=== PATIENT | male | born 1950 | race Caucasian/White ===

== ENCOUNTER 2017-06-22 13:33 | Emergency (ER) | payer MEDICARE, OTHER ==
[~2017-06-22] VITALS: Ht 177.8 cm; Wt 117.0 kg
[~2017-06-22 13:33] MED LIST: HYDR-3720 PO
[2017-06-22 13:58] LABS: BASOPHILS # (AUTO) 0.1 10^3/uL (0.0-0.1); BASOPHILS % (AUTO) 1 % (0-10); EOSINOPHILS # (AUTO) 0.1 10^3/uL (0.0-0.3); EOSINOPHILS % (AUTO) 1 % (0-10); HEMATOCRIT 44 % (40-54); HEMOGLOBIN 15.3 G/DL (13.3-17.7); LYMPHOCYTES # (AUTO) 1.9 X 10^3 (1.0-4.0); LYMPHOCYTES % (AUTO) 29 % (12-44); MEAN CORPUSCULAR HEMOGLOBIN 32 PG (25-34); MEAN CORPUSCULAR HGB CONC 35 G/DL (32-36); MEAN CORPUSCULAR VOLUME 92 FL (80-99); MEAN PLATELET VOLUME 11.6 FL (7.4-10.4); MONOCYTES # (AUTO) 0.6 X 10^3 (0.0-1.0); MONOCYTES % (AUTO) 10 % (0-12); NEUTROPHILS # (AUTO) 3.7 X 10^3 (1.8-7.8); NEUTROPHILS % (AUTO) 58 % (42-75); PLATELET COUNT 162 10^3/uL (130-400); RED BLOOD COUNT 4.81 10^6/uL (4.35-5.85); RED CELL DISTRIBUTION WIDTH 13.9 % (10.0-14.5); WHITE BLOOD COUNT 6.3 10^3/uL (4.3-11.0)
--- NOTE | 2017-06-22 13:58 | ED Chest Pain ---
General Chief Complaint: Chest Pain Stated Complaint: CHEST PAIN Nursing Triage Note: KEENAN WAS WORKING IN THE YARD WHEN HE STARTED TO HAVE CHEST PAIN AROUND 12: 15. HE CALLED EMS. THE DID EKG, PAIN RESOLVED WITHOUT MEDS. EMS FELT HE WAS STABLE ENOUGH TO COME ON INTO THE HOSPITAL FOR LABS. HE IS CURRENTLY NOT HAVING ANY CHEST PAIN. Nursing Sepsis Screen: No Definite Risk Source: patient, family Exam Limitations: no limitations History of Present Illness Date Seen by Provider: Jun 22, 2017 Time Seen by Provider: 13:54 Initial Comments The patient is a 67-year-old white male. He reports that he was working in his yard and developed central chest pain. There was no radiation to neck and jaw arms or back. This occurred at about 1215. He then called the ambulance and they responded. The pain was associated with a cold sweat which was not drenching. He has a previous history of coronary artery disease and had 3 stents placed at [facility] around the first of the year. Timing/Duration: 1-3 hours Severity/Quality: moderate Location: central Radiation: no radiation Activities at Onset: activity (yard work) Modifying Factors: improves with rest Associated Symptoms: diaphoresis Allergies and Home Medications Allergies Coded Allergies: No Known Allergies (Unverified Allergy, Mild, 11/25/05) No Known Drug Allergies (Unverified Allergy, Mild, 10/04/08) Home Medications Hydrocodone Bit/Acetaminophen 1 Ea Tab, 1 EA PO Q 4 - 6 HRS PRN Prescribed by: SUSAN DUTTON on 10/05/08 0203 Patient Home Medication List Home Medication List Reviewed: Yes Review of Systems Constitutional: see HPI EENTM: No Symptoms Reported Respiratory: No Symptoms Reported Cardiovascular: See HPI, Chest Pain Gastrointestinal: No Symptoms Reported Genitourinary: No Symptoms Reported Musculoskeletal: no symptoms reported Skin: no symptoms reported Psychiatric/Neurological: No Symptoms Reported Endocrine: No Symptoms Reported Hematologic/Lymphatic: No Symptoms Reported Past Vwxrzbb-Kixayc-Mpgqkc Hx Patient Social History Recent Foreign Travel: No Contact w/Someone Who Travel: No Recent Infectious Disease Expo: No Physical Exam Vital Signs Vital Signs - First Documented 06/22/17 13:43 Temp 97.8 Pulse 60 Resp 16 B/P (MAP) 122/91 (101) Pulse Ox 99 O2 Delivery Room Air Capillary Refill : Less Than 3 Seconds General Appearance: Mild Distress HEENT: Normal ENT Inspection Neck: Normal Inspection Respiratory: Chest Non Tender, Lungs Clear, Normal Breath Sounds, No Accessory Muscle Use, No Respiratory Distress Cardiovascular: Regular Rate, Rhythm, No Edema, No Gallop, No JVD, No Murmur, Normal Peripheral Pulses Gastrointestinal: Normal Bowel Sounds, No Organomegaly, No Pulsatile Mass, Non Tender Extremity: Normal Capillary Refill, Normal Inspection, Normal Range of Motion, Non Tender, No Calf Tenderness, No Pedal Edema Skin: Normal Color, Warm/Dry Lymphatic: No Adenopathy Other comments Symmetrical 1+ pretibial edema consistent with venous stasis bilaterally Progress/Results/Core Measures Results/Orders Lab Results Laboratory Tests Test 06/22/17 13:48 Range/Units White Blood Count 6.3 4.3-11.0 10^3/uL Red Blood Count 4.81 4.35-5.85 10^6/uL Hemoglobin 15.3 13.3-17.7 G/DL Hematocrit 44 40-54 % Mean Corpuscular Volume 92 80-99 FL Mean Corpuscular Hemoglobin 32 25-34 PG Mean Corpuscular Hemoglobin Concent 35 32-36 G/DL Red Cell Distribution Width 13.9 10.0-14.5 % Platelet Count 162 130-400 10^3/uL Mean Platelet Volume 11.6 H 7.4-10.4 FL Neutrophils (%) (Auto) 58 42-75 % Lymphocytes (%) (Auto) 29 12-44 % Monocytes (%) (Auto) 10 0-12 % Eosinophils (%) (Auto) 1 0-10 % Basophils (%) (Auto) 1 0-10 % Neutrophils # (Auto) 3.7 1.8-7.8 X 10^3 Lymphocytes # (Auto) 1.9 1.0-4.0 X 10^3 Monocytes # (Auto) 0.6 0.0-1.0 X 10^3 Eosinophils # (Auto) 0.1 0.0-0.3 10^3/uL Basophils # (Auto) 0.1 0.0-0.1 10^3/uL Sodium Level 137 135-145 MMOL/L Potassium Level 4.5 3.6-5.0 MMOL/L Chloride Level 104 98-107 MMOL/L Carbon Dioxide Level 23 21-32 MMOL/L Anion Gap 10 5-14 MMOL/L Blood Urea Nitrogen 13 7-18 MG/DL Creatinine 0.99 0.60-1.30 MG/DL Estimat Glomerular Filtration Rate > 60 BUN/Creatinine Ratio 13 Glucose Level 108 H 70-105 MG/DL Calcium Level 9.2 8.5-10.1 MG/DL Total Bilirubin 1.3 H 0.1-1.0 MG/DL Aspartate Amino Transf (AST/SGOT) 69 H 5-34 U/L Alanine Aminotransferase (ALT/SGPT) 48 0-55 U/L Alkaline Phosphatase 146 H 40-136 U/L Troponin I < 0.30 <0.30 NG/ML Total Protein 7.8 6.4-8.2 GM/DL Albumin 3.9 3.2-4.5 GM/DL My Orders Orders - FRANCI GUADARRAMA MD Ekg Tracing (06/22/17 13:34) Cbc With Automated Diff (06/22/17 13:34) Comprehensive Metabolic Panel (06/22/17 13:34) Troponin I (06/22/17 13:34) Chest 1 View, Ap/Pa Only (06/22/17 13:34) Vital Signs/I&O Vital Sign - Last 12Hours 06/22/17 13:43 Temp 97.8 Pulse 60 Resp 16 B/P (MAP) 122/91 (101) Pulse Ox 99 O2 Delivery Room Air Blood Pressure Mean: 101 Departure Impression Impression: Primary Impression: Chest pain Disposition: 01 HOME, SELF-CARE Condition: Improved Departure-Patient Inst. Decision time for Depature: 15:03 Referrals: NO,LOCAL PHYSICIAN (PCP) Primary Care Physician Patient Instructions: Angina (DC) Add. Discharge Instructions: All discharge instructions reviewed with patient and/or family. Voiced understanding. The cardiogram and laboratory are negative. The troponin was less than 0.30. In discussing this with the patient and his family, it was revealed that he has been without Plavix for 3 days. His stenting was done in March and he was told that he was to take Plavix for a year. I am inferring that this means drug eluting stents. They have been informed that there refill is in at the pharmacy. Resume your Plavix today. If recurrent pain return to the emergency room. FRANCI GUADARRAMA MD Jun 22, 2017 13:58
--- OUTSIDE RECORDS SUMMARY | 2017-06-22 14:03 | XMS REPORT | Continuity of Care Document ---
Author Author [facility] Organization [facility] Address Unknown Phone Unavailable Allergies Active Description Code Type Severity Reaction Onset Reported/Identified Relationship to Patient Clinical Status Yes NKANo Known Allergies NKA Miscellaneous Allergy Mild N/A 11/25/2005 Yes No Known Drug Allergies [id number] Drug Allergy Mild N/A 10/04/2008 Medications There is no data. Problems There is no data. Procedures There is no data. Results Test Result Range Complete blood count (CBC) with automated white blood cell (WBC) differential - 06/22/17 13:48 Blood leukocytes automated count (number/volume) 6.3 10*3/uL 4.3-11.0 Blood erythrocytes automated count (number/volume) 4.81 10*6/uL 4.35-5.85 Venous blood hemoglobin measurement (mass/volume) 15.3 g/dL 13.3-17.7 Blood hematocrit (volume fraction) 44 % 40-54 Automated erythrocyte mean corpuscular volume 92 [foz_us] 80-99 Automated erythrocyte mean corpuscular hemoglobin (mass per erythrocyte) 32 pg 25-34 Automated erythrocyte mean corpuscular hemoglobin concentration measurement ( mass/volume) 35 g/dL 32-36 Automated erythrocyte distribution width ratio 13.9 % 10.0-14.5 Automated blood platelet count (count/volume) 162 10*3/uL 130-400 Automated blood platelet mean volume measurement 11.6 [foz_us] 7.4-10.4 Automated blood neutrophils/100 leukocytes 58 % 42-75 Automated blood lymphocytes/100 leukocytes 29 % 12-44 Blood monocytes/100 leukocytes 10 % 0-12 Automated blood eosinophils/100 leukocytes 1 % 0-10 Automated blood basophils/100 leukocytes 1 % 0-10 Blood neutrophils automated count (number/volume) 3.7 10*3 1.8-7.8 Blood lymphocytes automated count (number/volume) 1.9 10*3 1.0-4.0 Blood monocytes automated count (number/volume) 0.6 10*3 0.0-1.0 Automated eosinophil count 0.1 10*3/uL 0.0-0.3 Automated blood basophil count (count/volume) 0.1 10*3/uL 0.0-0.1 Encounters ACCT No. Visit Date/Time Discharge Status Pt. Type Provider Facility Loc./Unit Complaint [id number] 07/16/2013 13:00:00 07/29/2013 12:08:00 [facility] Outpatient [id number] 06/22/2017 13:35:00 ACT Emergency THIERRY CALDERA, FRANCI [facility] ER CHEST PAIN
[2017-06-22 14:16] LABS: ALANINE AMINOTRANSFERASE 48 U/L (0-55); ALBUMIN 3.9 GM/DL (3.2-4.5); ALKALINE PHOSPHATASE 146 U/L (40-136); BILIRUBIN,TOTAL 1.3 MG/DL (0.1-1.0); BUN/CREATININE RATIO 13; CALCIUM 9.2 MG/DL (8.5-10.1); CARBON DIOXIDE 23 MMOL/L (21-32); CHLORIDE 104 MMOL/L (98-107); CREATININE SERUM 0.99 MG/DL (0.60-1.30); GFR ESTIMATED > 60; GLUCOSE 108 MG/DL (70-105); POTASSIUM 4.5 MMOL/L (3.6-5.0); SODIUM 137 MMOL/L (135-145); TOTAL PROTEIN 7.8 GM/DL (6.4-8.2)
--- NOTE | 2017-06-22 14:32 | Diagnostic Imaging Report ---
CLINICAL INDICATION: Patient with chest pain started today. EXAM: Portable chest x-ray, upright view. COMPARISONS: Chest x-ray dated 10/05/2008. FINDINGS: Lungs/pleura: Lungs are clear. There is no pneumothorax. There is no pleural effusion. Mediastinum: Unremarkable. Pulmonary vasculature: Unremarkable. Heart: Unremarkable. Bones/extrathoracic soft tissue: Unremarkable. IMPRESSION: Stable chest x-ray exam with no interval radiographic evidence of acute cardiopulmonary process. Dictated by: Dictated on workstation # [id number]
[2017-06-22 15:40] VITALS: BP 122/91
== END 2017-06-22 15:41 | disposition home or self-care (01) ==
LOC: EDUNIT# 13:33 → ER 13:35
DX: R07.89 Other chest pain (principal); I25.10 Atherosclerotic heart disease of native coronary artery without angina pectoris; Z95.5 Presence of coronary angioplasty implant and graft
CPT/HCPCS: 36415; 71045; 80053; 84484; 85025; 93005

== ENCOUNTER 2017-10-19 10:45 | Emergency (ER) | payer MEDICARE, OTHER ==
[~2017-10-19] VITALS: Ht 177.8 cm; Wt 113.4 kg
[2017-10-19] MEDS ORDERED: fentaNYL INJECTION 100 MCG/2 ML AMP IVP ONE (11:15)
[2017-10-19 11:16] LABS: BASOPHILS # (AUTO) 0.1 10^3/uL (0.0-0.1); BASOPHILS % (AUTO) 1 % (0-10); EOSINOPHILS # (AUTO) 0.1 10^3/uL (0.0-0.3); EOSINOPHILS % (AUTO) 2 % (0-10); HEMATOCRIT 44 % (40-54); HEMOGLOBIN 15.1 G/DL (13.3-17.7); LYMPHOCYTES # (AUTO) 1.6 X 10^3 (1.0-4.0); LYMPHOCYTES % (AUTO) 24 % (12-44); MEAN CORPUSCULAR HEMOGLOBIN 32 PG (25-34); MEAN CORPUSCULAR HGB CONC 35 G/DL (32-36); MEAN CORPUSCULAR VOLUME 93 FL (80-99); MEAN PLATELET VOLUME 10.9 FL (7.4-10.4); MONOCYTES # (AUTO) 0.9 X 10^3 (0.0-1.0); MONOCYTES % (AUTO) 13 % (0-12); NEUTROPHILS # (AUTO) 3.9 X 10^3 (1.8-7.8); NEUTROPHILS % (AUTO) 60 % (42-75); PLATELET COUNT 157 10^3/uL (130-400); RED CELL DISTRIBUTION WIDTH 14.5 % (10.0-14.5); WHITE BLOOD COUNT 6.5 10^3/uL (4.3-11.0)
[2017-10-19] MEDS ORDERED: ATOR40TA70 (11:17)
[2017-10-19] MEDS ORDERED: METO-333 (11:17)
[2017-10-19] MEDS ORDERED: CLOP75TA28 (11:17)
[2017-10-19] MEDS ORDERED: ASPI-586 PO (11:17)
--- NOTE | 2017-10-19 11:17 | ED Lower Extremity ---
General Chief Complaint: Trauma-Non Activation Stated Complaint: RT LEG INJ, FELL THROUGH SWIMMING POOL DECK Source: patient, family Exam Limitations: no limitations History of Present Illness Date Seen by Provider: Oct 19, 2017 Time Seen by Provider: 11:12 Initial Comments 67-year-old male presents after he fell through his deck sustaining injuries to his right ribs and knee. He is complaining of pain in his right posterior rib cage and pain and swelling to his right knee. All the patient hit his head he is complaining of no loss of consciousness, confusion, neck pain, paresthesias or weakness in the extremities. He denies other significant injury in his accident. Patient's pain is sharp in nature moderately severe, and made worse by either a deep breath in his chest wall or movement of his right knee. There may have been a valgus stress to his right knee as he fell. Allergies and Home Medications Allergies Coded Allergies: No Known Allergies (Unverified Allergy, Mild, 11/25/05) No Known Drug Allergies (Unverified Allergy, Mild, 10/04/08) Home Medications Hydrocodone Bit/Acetaminophen 1 Ea Tab, 1 EA PO Q 4 - 6 HRS PRN Prescribed by: SUSAN DUTTON on 10/05/08 0203 Patient Home Medication List Home Medication List Reviewed: Yes Constitutional: No chills EENTM: No hearing loss Respiratory: see HPI, other (pain with deep breath in his right posterior ribs) Cardiovascular: No chest pain Gastrointestinal: No abdominal pain, No nausea, No vomiting Genitourinary: No dysuria, No hematuria Musculoskeletal: see HPI, back pain Skin: No change in color, No rash Psychiatric/Neurological: No Symptoms Reported Past Qtaghvq-Tfheju-Mnbtpj Hx Past Med/Social Hx: Reviewed Nursing Past Med/Soc Hx Patient Social History 2nd Hand Smoke Exposure: No Recent Foreign Travel: No Contact w/Someone Who Travel: No Recent Hopitalizations: No Seasonal Allergies Seasonal Allergies: No Past Medical History Surgeries: No Integumentary: No Physical Exam Vital Signs Vital Signs - First Documented 10/19/17 10:45 Temp 98.0 Pulse 56 Resp 18 B/P (MAP) 146/90 (108) Pulse Ox 97 O2 Delivery Room Air Capillary Refill : Height, Weight, BMI Height: 5'10.00" Weight: 258lbs. 0oz. [id number]; BMI Method:Stated General Appearance: WD/WN, mild distress HEENT: normal ENT inspection, other (there was no evidence of head injury on exam appreciated.) Neck: non-tender, full range of motion, supple Cardiovascular: normal peripheral pulses, regular rate, rhythm Respiratory: lungs clear, other (there is tenderness palpation of the right posterior ribs.) Gastrointestinal: normal bowel sounds, soft Back: normal inspection Hips: bilateral hip non-tender, bilateral hip normal inspection Legs: bilateral leg non-tender, bilateral leg normal inspection Knees: right knee ecchymosis, right knee joint effusion, right knee swelling, right knee other (there appears to be a moderate effusion present in the right knee.) Ankles: bilateral ankle non-tender, bilateral ankle normal inspection Feet: bilateral foot non-tender, bilateral foot normal inspection Neurologic/Tendon: normal sensation, normal motor functions, normal tendon functions Neurologic/Psychiatric: no motor/sensory deficits, alert, normal mood/affect, oriented x 3 Skin: normal color, warm/dry Progress/Results/Core Measures Results/Orders Lab Results Laboratory Tests Test 10/19/17 11:02 10/19/17 12:01 Range/Units White Blood Count 6.5 4.3-11.0 10^3/uL Red Blood Count 4.70 4.35-5.85 10^6/uL Hemoglobin 15.1 13.3-17.7 G/DL Hematocrit 44 40-54 % Mean Corpuscular Volume 93 80-99 FL Mean Corpuscular Hemoglobin 32 25-34 PG Mean Corpuscular Hemoglobin Concent 35 32-36 G/DL Red Cell Distribution Width 14.5 10.0-14.5 % Platelet Count 157 130-400 10^3/uL Mean Platelet Volume 10.9 H 7.4-10.4 FL Neutrophils (%) (Auto) 60 42-75 % Lymphocytes (%) (Auto) 24 12-44 % Monocytes (%) (Auto) 13 H 0-12 % Eosinophils (%) (Auto) 2 0-10 % Basophils (%) (Auto) 1 0-10 % Neutrophils # (Auto) 3.9 1.8-7.8 X 10^3 Lymphocytes # (Auto) 1.6 1.0-4.0 X 10^3 Monocytes # (Auto) 0.9 0.0-1.0 X 10^3 Eosinophils # (Auto) 0.1 0.0-0.3 10^3/uL Basophils # (Auto) 0.1 0.0-0.1 10^3/uL Prothrombin Time 14.2 12.2-14.7 SEC INR Comment 1.1 0.8-1.4 Sodium Level 137 135-145 MMOL/L Potassium Level 4.0 3.6-5.0 MMOL/L Chloride Level 106 98-107 MMOL/L Carbon Dioxide Level 22 21-32 MMOL/L Anion Gap 9 5-14 MMOL/L Blood Urea Nitrogen 11 7-18 MG/DL Creatinine 1.01 0.60-1.30 MG/DL Estimat Glomerular Filtration Rate > 60 BUN/Creatinine Ratio 11 Glucose Level 118 H 70-105 MG/DL Calcium Level 8.9 8.5-10.1 MG/DL Total Bilirubin 1.4 H 0.1-1.0 MG/DL Aspartate Amino Transf (AST/SGOT) 62 H 5-34 U/L Alanine Aminotransferase (ALT/SGPT) 49 0-55 U/L Alkaline Phosphatase 128 40-136 U/L Total Protein 7.3 6.4-8.2 GM/DL Albumin 3.7 3.2-4.5 GM/DL Urine Color YELLOW Urine Clarity CLEAR Urine pH 5 5-9 Urine Specific Pinnacle 1.015 L 1.016-1.022 Urine Protein NEGATIVE NEGATIVE Urine Glucose (UA) NEGATIVE NEGATIVE Urine Ketones NEGATIVE NEGATIVE Urine Nitrite NEGATIVE NEGATIVE Urine Bilirubin NEGATIVE NEGATIVE Urine Urobilinogen NORMAL NORMAL MG/DL Urine Leukocyte Esterase NEGATIVE NEGATIVE Urine RBC (Auto) NEGATIVE NEGATIVE Urine RBC NONE /HPF Urine WBC NONE /HPF Urine Squamous Epithelial Cells RARE /HPF Urine Crystals NONE /LPF Urine Bacteria NEGATIVE /HPF Urine Casts NONE /LPF Urine Mucus NEGATIVE /LPF Urine Culture Indicated NO My Orders Orders - VEL MASON MD Cbc With Automated Diff (10/19/17 10:56) Comprehensive Metabolic Panel (10/19/17 10:56) Ua Culture If Indicated (10/19/17 10:56) Ekg Tracing (10/19/17 10:56) Knee, Right, 3 Views (10/19/17 10:56) Protime With Inr (10/19/17 10:56) Ribs/Unilateral With Chest (10/19/17 10:56) Fentanyl Injection (Sublimaze Injection (10/19/17 11:15) Elbow, Right, 3 Views (10/19/17 11:23) Medications Given in ED Current Medications Medications Dose Ordered Sig/Sandy Route Start Time Stop Time Status Last Admin Dose Admin Fentanyl Citrate 50 mcg ONCE ONCE IVP 10/19/17 11:15 10/19/17 11:16 DC 10/19/17 11:25 50 MCG Vital Signs/I&O 10/19/17 10:45 Temp 98.0 Pulse 56 Resp 18 B/P (MAP) 146/90 (108) Pulse Ox 97 O2 Delivery Room Air Progress Progress Note : Time: 12:30 Progress Note X-rays of the right ribs, right elbow, and right knee failed to demonstrate evidence of fracture or dislocation. Clinically I believe the patient may have broken ribs in the right chest wall posteriorly over his lower rib cage. Although there is no evidence of fracture of the right knee the effusion raises concern for occult ligamentous injury. Departure Impression Primary Impression: Fall Qualified Codes: W19.XXXA - Unspecified fall, initial encounter Additional Impressions: Contusion of right chest wall Qualified Codes: S20.211A - Contusion of right front wall of thorax, initial encounter Contusion of right knee Qualified Codes: S80.01XA - Contusion of right knee, initial encounter Disposition: HOME, SELF-CARE Condition: Improved Departure-Patient Inst. Decision time for Depature: 12:33 Referrals: NO,LOCAL PHYSICIAN (PCP) Primary Care Physician Patient Instructions: CHEST CONTUSION Add. Discharge Instructions: Follow-up the orthopedic surgeon, Dr. Feldman in [place] on Sunday with disc of your films. Ice and elevate the right knee. Use your cane for assisted weightbearing. Ice tonight and heat tomorrow to the right chest wall. Hydrocodone as prescribed for pain. Return if any problems or questions. All discharge instructions reviewed with patient and/or family. Voiced understanding. VEL MASON MD Oct 19, 2017 11:17
[2017-10-19] MEDS ORDERED: POTASSIUM (11:19)
[2017-10-19 11:38] LABS: INR 1.1 (0.8-1.4); PROTHROMBIN TIME PATIENT 14.2 SEC (12.2-14.7)
[2017-10-19 11:47] LABS: ALANINE AMINOTRANSFERASE 49 U/L (0-55); ALBUMIN 3.7 GM/DL (3.2-4.5); ALKALINE PHOSPHATASE 128 U/L (40-136); BILIRUBIN,TOTAL 1.4 MG/DL (0.1-1.0); BUN/CREATININE RATIO 11; CALCIUM 8.9 MG/DL (8.5-10.1); CARBON DIOXIDE 22 MMOL/L (21-32); CHLORIDE 106 MMOL/L (98-107); CREATININE SERUM 1.01 MG/DL (0.60-1.30); GFR ESTIMATED > 60; GLUCOSE 118 MG/DL (70-105); SODIUM 137 MMOL/L (135-145); TOTAL PROTEIN 7.3 GM/DL (6.4-8.2)
--- NOTE | 2017-10-19 12:09 | Diagnostic Imaging Report ---
EXAMINATION: Right elbow, 3 views. COMPARISON: None. HISTORY: 67-year-old male, fall. Right elbow pain and bruising. FINDINGS: There is degenerative type enthesopathy at the common extensor tendon attachment and common flexor tendon attachment. There is no elbow joint effusion. There is no elbow joint dislocation. There is no identified acute fracture. There is no radiopaque foreign body. There is no cortical or aggressive bone destruction. IMPRESSION: 1. No identified acute bony abnormality of the right elbow. Dictated by: Dictated on workstation # [id number]
[2017-10-19 12:10] LABS: BILIRUBIN,URINE NEGATIVE (NEGATIVE); CLARITY,URINE CLEAR; COLOR,URINE YELLOW; GLUCOSE, URINE (UA) NEGATIVE (NEGATIVE); KETONES,URINE NEGATIVE (NEGATIVE); LEUKOCYTE ESTERASE ,URINE NEGATIVE (NEGATIVE); NITRITE,URINE NEGATIVE (NEGATIVE); PH,URINE 5 (5-9); PROTEIN,URINE NEGATIVE (NEGATIVE); UROBILINOGEN,URINE NORMAL (NORMAL)
--- NOTE | 2017-10-19 12:13 | Diagnostic Imaging Report ---
EXAMINATION: Ribs with PA chest, four images. COMPARISON: June 22, 2017. HISTORY: 67-year-old male, fall through deck. Right rib pain. FINDINGS: Heart size and mediastinal contours are unchanged. There is no identified pneumothorax. There is no large pleural effusion. There are low lung volumes with associated central bronchovascular crowding. There is no identified focal airspace consolidation. There are technical limitations of the exam relating to patient body habitus and difficulties with exposure. There are anchors overlying the right humeral head. There is no identified right-sided rib fracture. IMPRESSION: 1. No identified right-sided rib fracture. 2. No identified acute cardiopulmonary abnormality. Dictated by: Dictated on workstation # [id number]
--- NOTE | 2017-10-19 12:15 | Diagnostic Imaging Report ---
EXAMINATION: Right knee, three views. COMPARISON: None. HISTORY: 67-year-old male, fell through deck. Right knee pain. FINDINGS: There is no right knee joint effusion. There are tiny patellofemoral compartment osteophytes with mild patellofemoral compartment joint space loss. There is minimal degenerative type enthesopathy at the insertion of the distal quadriceps tendon. There is very mild narrowing of the medial compartment with tiny medial compartment osteophytes. There is no identified acute fracture. There is no radiopaque foreign body. IMPRESSION: 1. No identified acute bony abnormality of the right knee. 2. Mild medial and patellofemoral compartment osteoarthritis. Dictated by: Dictated on workstation # [id number]
[2017-10-19 12:19] LABS: BACTERIA,URINE NEGATIVE /HPF
[2017-10-19 12:20] LABS: SQUAMOUS EPITHELIAL CELL,UR RARE /HPF
[2017-10-19 12:43] VITALS: BP 131/81
--- OUTSIDE RECORDS SUMMARY | 2017-10-21 03:45 | XMS REPORT | Continuity of Care Document ---
Author Author [facility] Organization [facility] Address Unknown Phone Unavailable Allergies Active Description Code Type Severity Reaction Onset Reported/Identified Relationship to Patient Clinical Status Yes NKANo Known Allergies NKA Miscellaneous Allergy Mild N/A 11/25/2005 Yes No Known Drug Allergies [id number] Drug Allergy Mild N/A 10/04/2008 Medications There is no data. Problems Date Dx Coded Attending Type Code Diagnosis Diagnosed By 07/29/2013 ELISABET MELENDEZ MD Ot V45.89 POSTSURGICAL STATES NEC 07/29/2013 ELISABET MELENDEZ MD, Ot V57.1 PHYSICAL THERAPY NEC 06/22/2017 FRANCI GUADARRAMA MD, Ot I25.10 ATHSCL HEART DISEASE OF [place] CORONARY 06/22/2017 FRANCI GUADARRAMA MD Ot R07.89 OTHER CHEST PAIN 06/22/2017 FRANCI GUADARRAMA MD Ot Z95.5 PRESENCE OF CORONARY ANGIOPLASTY IMPLANT 06/25/2017 FRANCI GUADARRAMA MD Ot I25.10 ATHSCL HEART DISEASE OF [place] CORONARY 06/25/2017 FRANCI GUADARRAMA MD Ot R07.89 OTHER CHEST PAIN 06/25/2017 FRANCI GUADARRAMA MD Ot Z95.5 PRESENCE OF CORONARY ANGIOPLASTY IMPLANT Procedures There is no data. Results Test [...] blood basophil count (count/volume) 0.1 10*3/uL 0.0-0.1 Comprehensive metabolic panel - 06/22/17 13:48 Serum or plasma sodium measurement (moles/volume) 137 mmol/L 135-145 Serum or plasma potassium measurement (moles/volume) 4.5 mmol/L 3.6-5.0 Serum or plasma chloride measurement (moles/volume) 104 mmol/L 98-107 Carbon dioxide 23 mmol/L 21-32 Serum or plasma anion gap determination (moles/volume) 10 mmol/L 5-14 Serum or plasma urea nitrogen measurement (mass/volume) 13 mg/dL 7-18 Serum or plasma creatinine measurement (mass/volume) 0.99 mg/dL 0.60-1.30 Serum or plasma urea nitrogen/creatinine mass ratio 13 NRG Serum or plasma creatinine measurement with calculation of estimated glomerular filtration rate > NRG Serum or plasma glucose measurement (mass/volume) 108 mg/dL 70-105 Serum or plasma calcium measurement (mass/volume) 9.2 mg/dL 8.5-10.1 Serum or plasma total bilirubin measurement (mass/volume) 1.3 mg/dL 0.1-1.0 Serum or plasma alkaline phosphatase measurement (enzymatic activity/volume) 146 U/L 40-136 Serum or plasma aspartate aminotransferase measurement (enzymatic activity/ volume) 69 U/L 5-34 Serum or plasma alanine aminotransferase measurement (enzymatic activity/volume ) 48 U/L 0-55 Serum or plasma protein measurement (mass/volume) 7.8 g/dL 6.4-8.2 Serum or plasma albumin measurement (mass/volume) 3.9 g/dL 3.2-4.5 Serum or plasma troponin i.cardiac measurement (mass/volume) - 06/22/17 13:48 Serum or plasma troponin i.cardiac measurement (mass/volume) < ng/ mL <0.30 Complete blood count (CBC) with automated white blood cell (WBC) differential - 10/19/17 11:02 Blood leukocytes automated count (number/volume) 6.5 10*3/uL 4.3-11.0 Blood erythrocytes automated count (number/volume) 4.70 10*6/uL 4.35-5.85 Venous blood hemoglobin measurement (mass/volume) 15.1 g/dL 13.3-17.7 Blood hematocrit (volume fraction) 44 % 40-54 Automated erythrocyte mean corpuscular volume 93 [foz_us] 80-99 Automated erythrocyte mean corpuscular hemoglobin (mass per erythrocyte) 32 pg 25-34 Automated erythrocyte mean corpuscular hemoglobin concentration measurement ( mass/volume) 35 g/dL 32-36 Automated erythrocyte distribution width ratio 14.5 % 10.0-14.5 Automated blood platelet count (count/volume) 157 10*3/uL 130-400 Automated blood platelet mean volume measurement 10.9 [foz_us] 7.4-10.4 Automated blood neutrophils/100 leukocytes 60 % 42-75 Automated blood lymphocytes/100 leukocytes 24 % 12-44 Blood monocytes/100 leukocytes 13 % 0-12 Automated blood eosinophils/100 leukocytes 2 % 0-10 Automated blood basophils/100 leukocytes 1 % 0-10 Blood neutrophils automated count (number/volume) 3.9 10*3 1.8-7.8 Blood lymphocytes automated count (number/volume) 1.6 10*3 1.0-4.0 Blood monocytes automated count (number/volume) 0.9 10*3 0.0-1.0 Automated eosinophil count 0.1 10*3/uL 0.0-0.3 Automated blood basophil count (count/volume) 0.1 10*3/uL 0.0-0.1 PT panel in platelet poor plasma by coagulation assay - 10/19/17 11:02 Prothrombin time (PT) in platelet poor plasma by coagulation assay 14.2 s 12.2-14.7 INR in platelet poor plasma or blood by coagulation assay 1.1 0.8-1.4 Comprehensive metabolic panel - 10/19/17 11:02 Serum or plasma sodium measurement (moles/volume) 137 mmol/L 135-145 Serum or plasma potassium measurement (moles/volume) 4.0 mmol/L 3.6-5.0 Serum or plasma chloride measurement (moles/volume) 106 mmol/L 98-107 Carbon dioxide 22 mmol/L 21-32 Serum or plasma anion gap determination (moles/volume) 9 mmol/L 5-14 Serum or plasma urea nitrogen measurement (mass/volume) 11 mg/dL 7-18 Serum or plasma creatinine measurement (mass/volume) 1.01 mg/dL 0.60-1.30 Serum or plasma urea nitrogen/creatinine mass ratio 11 NRG Serum or plasma creatinine measurement with calculation of estimated glomerular filtration rate > NRG Serum or plasma glucose measurement (mass/volume) 118 mg/dL 70-105 Serum or plasma calcium measurement (mass/volume) 8.9 mg/dL 8.5-10.1 Serum or plasma total bilirubin measurement (mass/volume) 1.4 mg/dL 0.1-1.0 Serum or plasma alkaline phosphatase measurement (enzymatic activity/volume) 128 U/L 40-136 Serum or plasma aspartate aminotransferase measurement (enzymatic activity/ volume) 62 U/L 5-34 Serum or plasma alanine aminotransferase measurement (enzymatic activity/volume ) 49 U/L 0-55 Serum or plasma protein measurement (mass/volume) 7.3 g/dL 6.4-8.2 Serum or plasma albumin measurement (mass/volume) 3.7 g/dL 3.2-4.5 Complete urinalysis with reflex to culture - 10/19/17 12:01 Urine color determination YELLOW NRG Urine clarity determination CLEAR NRG Urine pH measurement by test strip 5 5-9 Specific gravity of urine by test strip 1.015 1.016- 1.022 Urine protein assay by test strip, semi-quantitative NEGATIVE NEGATIVE Urine glucose detection by automated test strip NEGATIVE NEGATIVE Erythrocytes detection in urine sediment by light microscopy NEGATIVE NEGATIVE Urine ketones detection by automated test strip NEGATIVE NEGATIVE Urine nitrite detection by test strip NEGATIVE NEGATIVE Urine total bilirubin detection by test strip NEGATIVE NEGATIVE Urine urobilinogen measurement by automated test strip (mass/volume) NORMAL NORMAL Urine leukocyte esterase detection by dipstick NEGATIVE NEGATIVE Automated urine sediment erythrocyte count by microscopy (number/high power field) NONE NRG Automated urine sediment leukocyte count by microscopy (number/high power field ) NONE NRG Bacteria detection in urine sediment by light microscopy NEGATIVE NRG Squamous epithelial cells detection in urine sediment by light microscopy RARE NRG Crystals detection in urine sediment by light microscopy NONE NRG Casts detection in urine sediment by light microscopy NONE NRG Mucus detection in urine sediment by light microscopy NEGATIVE NRG Complete urinalysis with reflex to culture NO NRG Encounters ACCT No. Visit Date/Time Discharge Status Pt. Type Provider Facility Loc./Unit Complaint [id number] 10/19/2017 10:47:00 10/19/2017 12:43:00 DIS Emergency MARLON CALDERA, VEL Pollard [facility] ER RT LEG INJ, FELL THROUGH SWIMMING POOL DECK [id number] 06/22/2017 13:35:00 06/22/2017 15:41:00 DIS Emergency THIERRY CALDERA, FRANCI Lott [facility] ER CHEST PAIN [id number] 07/16/2013 13:00:00 07/29/2013 12:08:00 DIS Outpatient AL CALDERA, ELISABET [facility] REHAB R SHOULDER RCR
== END 2017-10-19 12:43 | disposition home or self-care (01) ==
LOC: EDUNIT# 10:45 → ER 10:47
DX: S20.211A Contusion of right front wall of thorax, initial encounter (principal); S80.01XA Contusion of right knee, initial encounter; W17.89XA Other fall from one level to another, initial encounter
CPT/HCPCS: 36415; 71101; 73080; 73562; 80053; 81000; 85025; 85610; 93005; 96374